=== PATIENT | male | born 1985 | race Caucasian/White ===

== ENCOUNTER 2016-07-18 06:33 | Day surgery (SDC) | payer BC ==
--- NOTE | ~2016-07-18 | EGD ---
EGD REPORT [facility] [address] [address] NAME: NIRAJ RILEY : [birth year] STATUS : REG [facility]#: [id number] AGE: 30 ADM/REG DATE : 07/18/16 MR#: [id number] REPORT SERV DATE: 07/18/16 DICTATED BY: TAMIKO AYALA DATE: 07/18/16 REPORT STATUS : Draft TRANSCRIBED BY: [facility] DATE: 07/18/16 End[facility] Patient Name: Niraj Riley Date of : 1985 Attending MD: TAMIKO AYALA, Procedure Date No Time: 07/18/2016 Procedure: Upper GI endoscopy Indications: Epigastric abdominal pain, Abnormal CT of the GI tract, Gastroparesis Referring MD: DIEGO RAMOS Complications: No immediate complications. Estimated blood loss: None. Procedure: Pre-Anesthesia Assessment: - ASA Grade Assessment: II - A patient with mild systemic disease. After obtaining informed consent, the endoscope was passed under direct vision. Throughout the procedure, the patient's blood pressure, pulse, and oxygen saturations were monitored continuously. The GIF [id number] was introduced through the mouth, and advanced to the second part of duodenum. The upper GI endoscopy was accomplished without difficulty. The patient tolerated the procedure well. Findings: LA Grade B (one or more mucosal breaks greater than 5 mm, not extending between the tops of two mucosal folds) esophagitis with no bleeding was found in the lower third of the esophagus. Biopsies were taken with a cold forceps for histology. Verification of patient identification for the specimen was done. Estimated blood loss was minimal. A medium amount of food (residue) was found in the gastric body. Normal mucosa was found in the entire examined stomach. Biopsies were taken with a cold forceps for histology. Verification of patient identification for the specimen was done. Estimated blood loss was minimal. The examined duodenum was normal. Biopsies were taken with a cold forceps for histology. Verification of patient identification for the specimen was done. Estimated blood loss was minimal. Using the endoscope, the video capsule enteroscope was advanced into the 2nd part of the duodenum. Impression: - LA Grade B reflux esophagitis. Biopsied. Recommendation: - Patient has a contact number available for emergencies. The signs and symptoms of potential delayed complications were discussed with the patient. Return to EGD REPORT [place] [id number] [facility] [place]. [address] NAME: NIRAJ RILEY : [birth year] STATUS : REG [facility] PAT#: [id number] AGE: 30 ADM/REG DATE : 07/18/16 MR#: [id number] REPORT SERV DATE: 07/18/16 DICTATED BY: TAMIKO AYALA DATE: 07/18/16 REPORT STATUS : Draft TRANSCRIBED BY: [employer] DATE: 07/18/16 normal activities tomorrow. Written discharge instructions were provided to the patient. - Return to previous diet. - Continue present medications. - Await pathology results. - Await capsule study. Procedure Code(s): --- Professional --- 00268, Esophagogastroduodenoscopy, flexible, transoral; with biopsy, single or multiple Diagnosis Code(s): --- Professional --- K21.0, Gastro-esophageal reflux disease with esophagitis R10.13, Epigastric pain R93.3, Abnormal findings on diagnostic imaging of other parts of digestive tract K31.84, Gastroparesis CPT copyright 2013 [employer]. All rights reserved. The codes documented in this report are preliminary and upon senior web designer review may be revised to meet current compliance requirements. TAMIKO AYALA, 07/18/2016 8:05 AM Number of Addenda: 0 Note Initiated On: 07/18/2016 7:34 AM Scope Withdrawal Time 0 hours 0 minutes 0 seconds [id number] [id number]
[~2016-07-18 06:33] MED LIST: *DENIES; HYCOSAMINE; HYOSCYAMINE; LINZESS; PROTONIX PO
== END 2016-07-18 23:59 | disposition home or self-care (01) ==
LOC: DMU 06:33
PROVIDERS: Internal Medicine Gastroenterology
PROC: 0DB98ZX Excision of Duodenum, Via Natural or Artificial Opening Endoscopic, Diagnostic (ICD-10-PCS; 2016-07-18)
PROC: 0DB58ZX Excision of Esophagus, Via Natural or Artificial Opening Endoscopic, Diagnostic (ICD-10-PCS; principal; 2016-07-18 08:00)
PROC: 0DB68ZX Excision of Stomach, Via Natural or Artificial Opening Endoscopic, Diagnostic (ICD-10-PCS; 2016-07-18 08:00)
DX: K29.50 Unspecified chronic gastritis without bleeding (principal); K20.9 Esophagitis, unspecified; K31.84 Gastroparesis; R93.3 Abnormal findings on diagnostic imaging of other parts of digestive tract; K58.9 Irritable bowel syndrome, unspecified; Z90.49 Acquired absence of other specified parts of digestive tract; Z98.890 Other specified postprocedural states
CPT/HCPCS: 88305; J0330; J2405